=== PATIENT | female | born 2000 | race Caucasian/White ===

== ENCOUNTER 2022-01-04 08:15 | Outpatient (RCR) | payer BC, SELFPAY | END 2022-04-05 14:32 | disposition home or self-care (01) | PROVIDERS: PCP Pediatrics; Visit Provider Orthopaedic Surgery Sports Medicine | DX: M25.561 Pain in right knee (principal); Z51.89 Encounter for other specified aftercare | CPT/HCPCS: 97110 ==

== ENCOUNTER 2022-05-21 14:29 | Outpatient (CLI) | payer BC, SELFPAY ==
--- NOTE | 2022-05-21 14:33 | MR_ITS ---
[address] [address] Phone:?[phone] Fax:?[phone] Referring Physician Information: Justin Moffett M.D. [id number] [address] Phone:?[phone] Fax:?[phone] Patient:Keven Galicia D.O.B:?2000 Sex:?Female Phone:?[phone] [facility] MRN:?[id number] Exam Date:?05/21/2022 ? 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 COMPARISONS: MRI 10/10/2021. X-rays dated 05/18/2022. TECHNICAL: MR sequences of the right knee: sagittals: PD, PDFS coronals: PD, T2FS axials: PD, PDFS SEDATION: None. CONTRAST: None. FINDINGS: Ligaments: ACL: Intact ACL anteromedial and posterolateral bundles, without sprain or tear. PCL: Intact PCL, without acute or chronic injury. MCL: Mild thickening of the proximal MCL consistent with sequelae of prior sprain injury. No evidence of ligament disruption. LCL: Intact LCL, without injury. Posterolateral corner: Popliteus, biceps femoris, iliotibial band, and the popliteofibular ligament appear intact. Posteromedial corner: Semimembranosus, pes anserine tendons and posterior oblique ligament appear intact. Extensor mechanism: Patellar tendon: Intact, without tendinopathy. Quadriceps tendon: Intact, without tendinopathy. Retinacula: Medial and lateral retinacula are intact. Fat pads: Unremarkable infrapatellar Hoffa's, quadriceps and prefemoral fat pads. Patellofemoral joint: Patella: There is heterogeneity of the patellar cartilage with chondral fissuring involving the patellar median ridge and medial patellar facet. There is mild lateral patellar tilt. Mild patella gracie similar to prior exam. Increased marrow edema is seen to involve the inferior and medial patella. Trochlea: No significant chondromalacia. Medial compartment: Medial meniscus: No evidence of discrete meniscal tear or meniscal displacement. Medial cartilage: No significant chondromalacia. Lateral compartment: Lateral meniscus: No evidence of discrete meniscal tear or meniscal displacement. Lateral cartilage: No significant chondromalacia. Knee joint: Effusion: Very small right knee effusion. Intra-articular bodies:?No convincing bodies identified. Popliteal cyst: None. Bones: Increased marrow edema involves the peripheral anterior lateral femoral condyle and there is marrow edema involving the inferior and medial patella. Suspected subcortical fracture line involves the peripheral anterior lateral femoral condyle on axial series 3 images 15-17. Remaining imaged osseous structures appear intact. IMPRESSION: 1. Sequelae of recurrent transient patellofemoral dislocation injury with associated osseous contusions involving the inferior and medial patella and peripheral anterior lateral femoral condyle, with a suspected subcortical fracture line involving the peripheral anterior lateral femoral condyle. 2. Mild thickening of the proximal MCL consistent with sequelae of prior sprain injury. Remaining ligamentous structures appear intact. 3. Patellar chondral heterogeneity with fissuring involving the medial patellar facet and patellar median ridge. JCZ Electronically signed on 05/21/2022 4:08:00 PM by Jerome Bernal D.O.
== END 2022-05-21 14:30 | disposition home or self-care (01) ==
LOC: MRI 14:30
PROVIDERS: PCP Pediatrics; Visit Provider Orthopaedic Surgery Sports Medicine
DX: M25.561 Pain in right knee (principal); M22.01 Recurrent dislocation of patella, right knee; S83.411A Sprain of medial collateral ligament of right knee, initial encounter
CPT/HCPCS: 73721

== ENCOUNTER 2022-06-18 08:26 | Day surgery (SDC) | payer BC, SELFPAY ==
[2022-06-18] VITALS (13 sets, daily range): BP systolic 93–134; BP diastolic 56–89; PULSE 67–90; RESP 16; TEMP 36.1–36.9; O2SAT 97–100; BMI 36.6
[2022-06-18] MEDS: LACTATED RINGERS 1000 ML 1,000 ML 100 ML IV ×2 (08:45→10:40)
[2022-06-18] MEDS: SODIUM CHLORIDE 0.9 % (FLUSH) 10 ML SYRINGE IVF (08:45)
[2022-06-18 08:46] LABS: Ur HCG Qualitative* Negative (Negative)
--- NOTE | 2022-06-18 09:12 | SUR.PREOP ---
HOME COVID TEST NEGATIVE
--- NOTE | 2022-06-18 09:13 | SUR.PREOP ---
TIME?OUT:?913 PT/RN/MDA?VERIFICATION?OF?SURGICAL?SITE,?PROCEDURE,?AND?CONSENT OBTAINED?PRIOR?TO?INVASIVE?PROCEDURE.
[2022-06-18] MEDS: MIDAZOLAM HCL 1 MG/ML inj IVP (09:15)
[2022-06-18] MEDS: fentaNYL 100 MCG/2 ML inj IVP (09:15)
--- NOTE | 2022-06-18 09:43 | CRLHL7_ITS ---
For Patients: As a result of the Century Cures Act, medical imaging exams and procedure reports are released immediately into your electronic medical record. You may view this report before your referring provider. If you have questions, please contact your health care provider. Indication: right medial patellofem ligament reconstruction,intra-op c-arm for right knee MPFL reconstruction Technique: Single fluoroscopic image submitted including both knees. Fluoroscopic 34.9 seconds. IMPRESSION: Fluoroscopic guidance for medial patellofemoral ligament reconstruction. Dictated by Juan Olmedo MD @ 06/18/2022 2:32:35 PM (Electronically Signed)
--- NOTE | 2022-06-18 10:01 | W.PM.NB ---
Nerve Block Nerve Block Time Seen by Provider: 09:18 Date Seen: 06/18/22 Type of block requested by surgeon for post-operative analgesia: femoral and adductor canal Side: right Time out performed: Yes Verification of patient name: Yes Verification of date of : Yes Site marking: site marked Name of person performing procedure: Yobani Continuous monitoring Was continuous monitoring of O2 sat, B/P, monitor car operator, recorded every 15 minutes?: Yes Procedure Checklist: sterile prep, needles and gloves Ultrasound guided. Images saved: Yes Medications given in 5ml increments after negative aspiration: Ropivicaine %: 0.5 mL: 20 Needle gauge: 20 Patient tolerated procedure well: Yes Additional comments: Needle noted adjacent to nerve Block Charges Block Charge (with Pro Fee): Femoral Nerve Use of Ultrasound Machine for Block: Yes- US Guidance/pain block
--- NOTE | 2022-06-18 10:01 | W.ANESCHARGE ---
Anesthesia Charges Start Date/Time Anesthesia Start Date: 06/18/22 Anesthesia Start Time: 10:09 Stop Date/Time Anesthesia Stop Date: 06/18/22 Anesthesia Stop Time: 12:39 Summary Emergency: No
[2022-06-18] MEDS: CEFAZOLIN 2 GM in 0.9 % SODIUM CHLORIDE Mini-bag 100 ML IVPB (10:15)
--- NOTE | 2022-06-18 12:38 | W.ANESCHARGE ---
Anesthesia Charges Start Date/Time Anesthesia Start Date: 06/18/22 Anesthesia Start Time: 10:09 Stop Date/Time Anesthesia Stop Date: 06/18/22 Anesthesia Stop Time: 12:39 Summary Emergency: No
--- NOTE | 2022-06-18 13:23 | PM.ORPRC ---
Procedure Note Date of procedure: 06/18/22 Procedure: PREOPERATIVE4 it is DIAGNOSIS: 1. Right knee patellar lateral dislocation with medial patellofemoral ligament (extra-articular ligament) disruption confirmed on MRI, and now recurrent patellar instability 2. Right knee patellofemoral chondromalacia POSTOPERATIVE DIAGNOSIS: 1. Right knee patellar lateral dislocation with medial patellofemoral ligament (extra-articular ligament) disruption confirmed on MRI, and now recurrent patellar instability 2. Right knee patellofemoral chondromalacia PROCEDURE: 1. Right knee extra-articular ligament reconstruction-MPFL (allograft) 2. Right knee diagnostic arthroscopy. 3. Right knee arthroscopy chondroplasty patella loose chondral flaps which was the median ridge and medial facet. 3. [id number] - intraoperative fluoroscopy up to 1 hour. SURGEON: Justin Moffett M.D. FAMILY READINESS SUPPORT ASSISTANT: Rizwan Bustillo PA-C; Chito MCWILLIAMS. Of note, a skilled assistant professor of education was critical for this case to aid in patient positioning, knee manipulation, instrument exchange, tissue retraction, patient safety, skill to manipulate arthroscopic instruments and camera, brace application, and closure. ANESTHESIA: Spinal plus femoral nerve block EBL: 100 mL TOURNIQUET: 100 minutes at 300 torr IMPLANTS: Arthrex 3.9 mm BioComposite SwiveLock suture anchor (x2)-patellar fixation; Arthrex 6 by 20 mm BioComposite fast thread tenodesis screw (x1)-femoral fixation. COMPLICATIONS: None evident INDICATIONS: The patient is a pleasant 21-year-old. Collegiate rugby player. She did sustain a patellar dislocation event multiple months ago. This was treated nonoperatively. Unfortunately, she continue experience patellar recurrent instability. Given the failure of nonoperative management, surgery was indicated. FINDINGS: Exam under anesthesia revealed negative Herman's. Negative posterior drawer. Crepitation with knee range of motion. Stable varus, valgus stress at 0 and 30?. With lateral patellar translation with the knee at 20-30 degrees of flexion, the patella did approach dislocation, that is 3rd quadrant translation but did not frankly dislocate. Notable greater laxity than the contralateral side. The diagnostic arthroscopy showed grade 3 chondromalacia with loose chondral flaps of the patella median ridge and medial facet. No full-thickness chondral defects evident. No fully loose chondral defect lateral femoral condyle. Medial and lateral menisci were intact. Articular cartilage the medial lateral compartments was intact and healthy. ACL and PCL were intact robust. No loose bodies evident. DESCRIPTION OF PROCEDURE: After a thorough discussion of risks, benefits, and alternatives, the patient was brought to the operating room and placed upon the operating table. Induction of anesthesia was undertaken as previously noted. 2 g IV Ancef was administered within 1 hr of incision preoperatively. Appropriate time-out was performed identifying proper patient, site, and procedure. The right lower extremity was prepped and draped in the appropriate sterile fashion using ChloraPrep. The limb was exsanguinated and tourniquet inflated. Anterolateral and anteromedial portals were established with an 11 blade, and a diagnostic arthroscopy was performed. This identified the findings as noted above. Following the diagnostic arthroscopy, chondroplasty of the patella loose chondral flaps was performed with a torpedo shaver. At this stage, we made an incision adjacent to the patella longitudinally just medial to the midline of the anterior skin. Sharp incision through skin and blunt dissection through subcutaneous tissue allowed us to identify the deep retinaculum. Initially, we made our approach for where the MPFL graft would lay. This was deep to the retinacular tissue but superficial to the capsule itself. After developing this plane, down to the medial femoral epicondyle/adductor tubercle region, a passing suture was placed for later passage of the graft. At this stage, we turned our attention to the MPFL extra-articular ligament reconstruction. The gracilis allograft was prepared on the back table utilizing 2-0 Fiber loop suture in a locking fashion on either end. 230 mm in length was utilized and found to be appropriate. Once establishing the graft preparation, we then drilled our patellar guide pins aiming for the proximal 1/3 to mid portion of the medial patella. Guide pins were confirmed on C-arm to be extra-articular and parallel. We then over-reamed the guide pins with a Reamer, and the associated swivel locks were then placed with the graft tails dunked into these tunnels. Excellent security of these swivel locks was achieved. The loop then of the graft was passed with a passing suture through the previously dissected plane superficial to the joint capsule but deep to the retinaculum. This was passed with the medial femoral epicondylar/adductor tubercle region. We made an incision in this location to help us visualize the medial femoral adductor tubercle region. Our guide pin was then placed with C-arm fluoroscopic imaging utilizing a perfect lateral image of the distal femur to help us ideally track the MPFL femoral attachment. After confirming proper placement, we then drilled a Beath pin through the lateral femoral cortex aiming slightly anterior and proximal. Suture passage was then placed allowing us to pull through the sutures that were on the looped end of the graft. The graft was then dunked into the femoral condyle and secured with the BioComposite interference screw. This was placed over Nitinol wire which maintained our same trajectory and confirmed it to be intraosseous. C-arm again confirmed our drive shaft to be in the proper trajectory. Of note, the lateral border of the patella was held against the lateral femoral condyle cautiously with the knee at 30? of flexion during tensioning of the MPFL and the imbrication of the medial retinaculum. Thus, after securing the MPFL itself, the 2-0 FiberWire sutures and the 2. FiberWire suture from the anchor were passed through the retinaculum to help imbricate this tissue again with the patella held in this same position. The remaining wound was thoroughly irrigated normal saline, and closure of the arthrotomy performed with 0 Vicryl in interrupted [id number] fashion. Finally, remaining closure was performed with 2-0 Vicryl and 4-0 Monocryl for subcutaneous and subcuticular closures, respectively. Dressings were applied, the patient awoken from anesthesia and transferred to the PACU in stable condition. A skilled assistant professor of education was critical for this case to aid in patient positioning, knee manipulation, instrument exchange, tissue retraction, patient safety, skill to manipulate arthroscopic instruments and camera, brace application, and closure. PLAN: 1. Weightbear as tolerated operative extremity with the brace locked in extension. Crutch / walker ambulation assistance PRN. 2. Ice, acetominophen and/or ibuprofen, and Percocet for pain as needed. 3. Follow up with PA visit in 1-2 weeks for a wound check.
== END 2022-06-18 14:30 | disposition home or self-care (01) ==
PROVIDERS: Anesthesiology; PCP Pediatrics; Visit Provider Orthopaedic Surgery Sports Medicine
PROC: (CPT 27427; principal; 2022-06-18 10:15)
DX: S83.014A Lateral dislocation of right patella, initial encounter (principal); M22.42 Chondromalacia patellae, left knee; M23.52 Chronic instability of knee, left knee
CPT/HCPCS: 29877; 27427; 01320; 01400; 64447; 73560; 76000; 76942; 81025; 97116; 97161; C1713; C1762; J0690; J1100; J2250; J2400; J2405; J2704; J2795; J3010; J7120; L1833